=== PATIENT | male | born 1955 | race Two or more races ===

== ENCOUNTER 2019-06-05 06:26 | Day surgery (SDC) | payer OTHER | END 2019-06-05 12:15 | disposition home or self-care (01) | LOC: AMB-ENDOS 06:26 | DX: D12.4 Benign neoplasm of descending colon (principal); D12.5 Benign neoplasm of sigmoid colon ==

== ENCOUNTER 2019-06-19 16:44 | Inpatient (IN) | payer OTHER ==
[~2019-06-19] VITALS: Ht 162.6 cm; Wt 69.9 kg
[2019-07-04] MEDS ORDERED: FERRETTS325 MG PO (11:08)
[2019-07-04] MEDS ORDERED: FOLIC ACID1 MG PO (11:09)
[2019-07-15] MEDS ORDERED: LEVSIN/SL0.125 MG SL (10:45)
[2019-07-15] MEDS ORDERED: ULTRACET PO (10:45)
[2019-07-15] MEDS ORDERED: INTESTINEX680 M1 PO (10:45)
== END 2019-07-15 10:53 | disposition home or self-care (01) | DRG 331 ==
LOC: SURG 07-04 09:00 → SURH 07-12 08:07 → O/R 07-12 08:07 → SURG 07-12 09:00 → SURH 07-12 15:04
PROVIDERS: ADMIT Surgery
PROC: 07TB4ZZ Resection of Mesenteric Lymphatic, Percutaneous Endoscopic Approach (ICD-10-PCS; 2019-07-12)
PROC: 4A033R1 Measurement of Arterial Saturation, Peripheral, Percutaneous Approach (ICD-10-PCS; 2019-07-12)
PROC: 4A12X4Z Monitoring of Cardiac Electrical Activity, External Approach (ICD-10-PCS; 2019-07-12)
PROC: 0DTF4ZZ Resection of Right Large Intestine, Percutaneous Endoscopic Approach (ICD-10-PCS; principal; 2019-07-12 07:00)
DX: D12.2 Benign neoplasm of ascending colon (principal); R59.0 Localized enlarged lymph nodes; I10 Essential (primary) hypertension; D50.0 Iron deficiency anemia secondary to blood loss (chronic); G47.33 Obstructive sleep apnea (adult) (pediatric)